=== PATIENT | male | born 1990 | race Caucasian/White ===

== ENCOUNTER 2018-11-17 00:40 | Inpatient (IN) ==
[2018-11-17] MEDS ORDERED: ONDANSETRON 4 MG/2 ML VIAL IV STA (01:00)
[2018-11-17] MEDS ORDERED: SODIUM CHLORIDE 0.9% 1,000 ML IV STA (01:00)
[2018-11-17 01:22] LABS: INR 0.9
[2018-11-17 01:28] LABS: Troponin I < 0.015 NG/ML (0.00-0.045)
[2018-11-17 01:29] LABS: Acetaminophen < 2.0 UG/ML (10-30); Salicylate < 2.8 MG/DL (2.8-20)
[2018-11-17 01:30] LABS: Alanine Aminotransferase 35 U/L (16-61); Albumin 4.3 G/DL (3.4-5.0); Alkaline Phosphatase 81 U/L (45-117); Aspartate Amino Transferase 24 U/L (0-37); Bilirubin,Total < 0.39 MG/DL (0.2-1.0); Blood Urea Nitrogen 13 MG/DL (7-18); Calcium 8.8 MG/DL (8.5-10.1); Glucose 95 MG/DL (74-106); Osmolality,Calculated 278.4 MOS/KG (273-304); Total Protein 7.6 G/DL (6.4-8.3)
[2018-11-17 01:36] LABS: Basophils # 0.1 10*3/uL (0.0-0.2); Basophils % 0.6 % (0.0-0.8); Eosinophils # 0.5 10*3/uL (0.0-0.87); Eosinophils % 4.4 % (0.00-10.9); Hematocrit 49.2 VOL% (42.0-52.0); Hemoglobin 16.6 GM/DL (14.0-18.0); Immature Granulocytes % 0.1 %; Lymphocytes # 3.8 10*3/uL (1.4-4.0); Lymphocytes % 34.3 % (21.2-54.2); Mean Corpuscular HGB Conc 33.7 GM/DL (32-36); Mean Corpuscular Volume 86.3 FL (87-102); Mean Platelet Volume 10.4 FL (9.6-12.0); Monocytes % 5.2 % (1.7-12.7); Neutrophils % 55.4 % (38.7-73.9); Platelet Count 246 T/CUMM (130-400); Red Cell Distribution Width 12.5 % (9.3-17.3)
[2018-11-17 01:37] LABS: Immature Granulocytes Absolute 0.01 #
[2018-11-17 01:55] LABS: Apearance,Urine CLEAR (Clear); Bilirubin,Urine Negative (Negative); Blood, Urine Negative (Negative); Glucose,Urine (UA) Negative (Negative); Ketones,Urine Negative (Negative); Nitrite,Urine Negative (Negative); Protein,Urine Negative; RBC,Urine 1 /HPF (0-4); Urine Color Colorless (Yellow); Urine Specific Gravity 1.006 (1.001-1.035); Urine Urobilinogen < 2.0 EU/DL (0.2-1.0); WBC,Urine <1 /HPF (0-6)
[2018-11-17 02:05] LABS: Barbiturates Screen,Urine Negative (Negative); Benzodiazepines Screen,Urine Negative (Negative); Cannabinoid Screen,Urine Negative (Negative); Opiate Screen,Urine Negative (Negative); Phencyclidine Screen,Urine Negative (Negative)
[2018-11-17] MEDS ORDERED: NICOTINE 21 MG/24 HR PATCH TRANSDERM PRN (02:21)
[2018-11-17] MEDS ORDERED: ONDANSETRON 4 MG/2 ML VIAL IV PRN (02:21)
[2018-11-17] MEDS ORDERED: ACETAMINOPHEN 325 MG TABLET PO PRN (02:21)
[2018-11-17] MEDS ORDERED: PROMETHAZINE 25 MG TABLET PO PRN (02:21)
[2018-11-17 03:58] VITALS: BP 142/92
[2018-11-17] MEDS: POTASSIUM CHLORIDE 20 MEQ TABLET PO SCH ×3 (09:41→17:29)
== END 2018-11-17 17:39 | DRG 917 ==
LOC: N.ED 00:40 → N.EDINP 02:22 → N.CC 03:48 → N.EDINP 03:57 → N.CC 03:57
PROVIDERS: ADMIT Internal Medicine; ATTEND Internal Medicine